=== PATIENT | female | born 1985 | race American Indian/Alaskan Native ===

== ENCOUNTER 2019-03-13 06:37 | Emergency (ER) | payer MEDICAID, OTHER ==
[2019-03-13 06:43] VITALS: BP 134/71
--- NOTE | 2019-03-13 07:49 | Emergency Department Report ---
ED Abdominal Pain HPI - General Chief Complaint: Abdominal Pain Stated Complaint: ABD PAIN Time Seen by Provider: 03/13/19 07:17 Source: patient Mode of arrival: Ambulatory Limitations: No Limitations - History of Present Illness Initial Comments: pt reports pelvic pain x 3 days, intermittent, sharp stabbing no n/v/d/c + dysuria, discharge MD Complaint: abdominal pain -: Gradual, days(s) (3) Location: suprapubic Radiation: none Migration to: no migration Severity: moderate Severity scale (0 -10): 5 Quality: stabbing Consistency: intermittent Improves With: nothing Worsens With: nothing Associated Symptoms: dysuria. denies: nausea, vomiting, diarrhea, fever - Related Data Previous Rx's Medication Instructions Recorded Last Taken Type Acetaminophen/Codeine [Tylenol #3] 1 tab PO Q6H PRN #16 tab 09/02/14 Unknown Rx Amoxicillin [Trimox CAP] 500 mg PO Q8H #30 capsule 09/02/14 Unknown Rx Ibuprofen [Motrin 800 MG tab] 800 mg PO Q8H #30 tablet 09/02/14 Unknown Rx Ibuprofen [Motrin] 600 mg PO Q8H PRN #15 tablet 03/13/19 Unknown Rx metroNIDAZOLE [Flagyl TAB] 2,000 mg PO ONCE #4 tab 03/13/19 Unknown Rx Allergies Allergy/AdvReac Type Severity Reaction Status Date / Time No Known Allergies Allergy Unverified 09/02/14 00:04 ED Review of Systems ROS: Stated complaint: ABD PAIN Other details as noted in HPI Comment: All other systems reviewed and negative Gastrointestinal: as per HPI Genitourinary: as per HPI ED Past Medical Hx - Past Medical History Previous Medical History?: No - Surgical History Past Surgical History?: No - Social History Smoking Status: Current Every Day Smoker Substance Use Type: Alcohol, Marijuana - Medications Home Medications: Home Medications Medication Instructions Recorded Confirmed Last Taken Type Acetaminophen/Codeine [Tylenol #3] 1 tab PO Q6H PRN #16 tab 09/02/14 Unknown Rx Amoxicillin [Trimox CAP] 500 mg PO Q8H #30 capsule 09/02/14 Unknown Rx Ibuprofen [Motrin 800 MG tab] 800 mg PO Q8H #30 tablet 09/02/14 Unknown Rx Ibuprofen [Motrin] 600 mg PO Q8H PRN #15 tablet 03/13/19 Unknown Rx metroNIDAZOLE [Flagyl TAB] 2,000 mg PO ONCE #4 tab 03/13/19 Unknown Rx ED Physical Exam - General Limitations: No Limitations General appearance: alert, in no apparent distress - Head Head exam: Present: atraumatic, normocephalic - Eye Eye exam: Present: normal appearance - ENT ENT exam: Present: mucous membranes moist - Neck Neck exam: Present: normal inspection - Respiratory Respiratory exam: Present: normal lung sounds bilaterally. Absent: respiratory distress - Cardiovascular Cardiovascular Exam: Present: regular rate, normal rhythm. Absent: systolic murmur, diastolic murmur, rubs, gallop - GI/Abdominal GI/Abdominal exam: Present: soft, tenderness (suprapubic, mild), normal bowel sounds. Absent: guarding, rebound, rigid - External exam: Present: normal external exam Speculum exam: Present: vaginal discharge (scant) Bi-manual exam: Present: normal bi-manual exam, other (libertad Teixeira RN ). Absent: cervical motion tendernes - Extremities Exam Extremities exam: Present: normal inspection - Back Exam Back exam: Present: normal inspection - Neurological Exam Neurological exam: Present: alert, oriented X3 - Psychiatric Psychiatric exam: Present: normal affect, normal mood - Skin Skin exam: Present: warm, dry, intact, normal color. Absent: rash ED Course Vital Signs 03/13/19 06:40 Temperature 98.9 F Pulse Rate 70 Respiratory 12 Rate Blood Pressure 134/71 O2 Sat by Pulse 100 Oximetry ED Medical Decision Making - Lab Data Lab Results 03/13/19 Range/Units 07:57 Urine Color Yellow (Yellow) Urine Turbidity Clear (Clear) Urine pH 5.0 (5.0-7.0) Ur Specific [place] 1.025 (1.003-1.030) Urine Protein <15 mg/dl (Negative) mg/dL Urine Glucose (UA) Neg (Negative) mg/dL Urine Ketones Neg (Negative) mg/dL Urine Blood Neg (Negative) Urine Nitrite Neg (Negative) Urine Bilirubin Neg (Negative) Urine Urobilinogen < 2.0 (<2.0) mg/dL Ur Leukocyte Esterase Neg (Negative) Urine WBC (Auto) 2.0 (0.0-6.0) /HPF Urine RBC (Auto) 2.0 (0.0-6.0) /HPF U Epithel Cells (Auto) 9.0 (0-13.0) /HPF Urine Bacteria (Auto) 1+ (Negative) /HPF Urine Mucus 1+ /HPF Urine HCG, Qual Negative (Negative) - Medical Decision Making Pt w/ lower abd discomfort intermittently mildly tender to suprapubic area only on exam no findings of PID, wants to be treated empirically for STI UA clear, UPT neg clue cells noted on wet prep, will treat offered US to evaluate for possible cyst, she declines today I do not suspect a GI etiology Recommend supportive care and PCP/VACATION PLANNER follow up - Differential Diagnosis uti, cervicitis, bv, cyst Critical care attestation.: If time is entered above; I have spent that time in minutes in the direct care of this critically ill patient, excluding procedure time. ED Disposition Clinical Impression: Pelvic pain, Bacterial vaginosis Disposition: TO HOME OR SELFCARE Is pt being admited?: No Condition: Good Instructions: Abdominal Pain (ED), Bacterial Vaginosis (ED) Prescriptions: metroNIDAZOLE [Flagyl TAB] 2,000 mg PO ONCE #4 tab Ibuprofen [Motrin] 600 mg PO Q8H PRN #15 tablet PRN Reason: Pain Referrals: PRIMARY CARE, [Primary Care Provider] - 3-5 Days Forms: STI Treatment and Prevention Time of Disposition: 09:19
[2019-03-13 09:02] LABS: Bacteria,Urine 1+ /HPF (Negative); Bilirubin,Urine NEG (Negative); Blood,Urine NEG (Negative); Color,Urine Yellow (Yellow); Mucus,Urine 1+ /HPF; Protein,Urine <15 mg/dL mg/dL (Negative); Urobilinogen,Urine < 2.0 mg/dL (<2.0)
[2019-03-13 09:03] LABS: HCG Qualitative,Urine Negative (Negative)
[2019-03-13] MEDS ORDERED: LIDOCAINE-MPF (1%) 10 MG/1 ML VIAL 5 ML INFILTRATI ONE (09:12)
[2019-03-13] MEDS ORDERED: AZITHROMYCIN 250 MG TAB PO ONE (09:12)
== END 2019-03-13 09:47 | disposition home or self-care (01) ==
LOC: ED 06:37
DX: N76.0 Acute vaginitis (principal); B96.89 Other specified bacterial agents as the cause of diseases classified elsewhere; R11.0 Nausea; F17.200 Nicotine dependence, unspecified, uncomplicated; F12.10 Cannabis abuse, uncomplicated
CPT/HCPCS: 81001; 81025; 87210; 87591; 96372; 99283; J0696

== ENCOUNTER 2020-09-22 00:16 | Emergency (ER) | payer OTHER ==
[2020-09-22 01:55] VITALS: BP 127/84
[2020-09-22] MEDS ORDERED: KETOROLAC 30 MG/1 ML INJ IM ONE (03:47)
--- NOTE | 2020-09-22 04:55 | Emergency Department Report ---
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 Patient states 4/10 pain is exacerbated by performing work duties moving boxes and lifting. There is no numbness tingling or paralysis. Pt denies loss or decrease in bowel or bladder function. pt drove self to ed , is a/o x 3 ambulatory with steady gait MD Complaint: back injury - Related Data Previous Rx's Medication Instructions Recorded Last Taken Type Acetaminophen/Codeine [Tylenol #3] 1 tab PO Q6H PRN #16 tab 09/02/14 Unknown Rx Amoxicillin [Trimox CAP] 500 mg PO Q8H #30 capsule 09/02/14 Unknown Rx Ibuprofen [Motrin 800 MG tab] 800 mg PO Q8H #30 tablet 09/02/14 Unknown Rx Ibuprofen [Motrin] 600 mg PO Q8H PRN #15 tablet 03/13/19 Unknown Rx metroNIDAZOLE [Flagyl TAB] 2,000 mg PO ONCE #4 tab 03/13/19 Unknown Rx Cyclobenzaprine [Flexeril] 10 mg PO TID PRN #15 tablet 09/22/20 Unknown Rx Menthol/Camphor [[place] 1 applicatio TP Q6H PRN #1 tube 09/22/20 Unknown Rx Ointment] Naproxen 500 mg PO BID PRN #30 tablet 09/22/20 Unknown Rx Allergies Allergy/AdvReac Type Severity Reaction Status Date / Time No Known Allergies Allergy Unverified 09/02/14 00:04 ED Review of Systems ROS: Stated complaint: UPPER BACK PAIN Other details as noted in HPI Constitutional: denies: chills, fever Eyes: denies: eye pain, eye discharge, vision change ENT: denies: ear pain, throat pain Respiratory: denies: cough, shortness of breath, wheezing Cardiovascular: denies: chest pain, palpitations Endocrine: no symptoms reported Gastrointestinal: denies: abdominal pain, nausea, diarrhea Genitourinary: denies: urgency, dysuria, discharge Musculoskeletal: back pain. denies: joint swelling, arthralgia Skin: denies: rash, lesions Neurological: denies: headache, weakness, paresthesias, vertigo Psychiatric: denies: anxiety, depression Hematological/Lymphatic: denies: easy bleeding, easy bruising ED Past Medical Hx - Past Medical History Previous Medical History?: No - Surgical History Past Surgical History?: No - Social History Smoking Status: Current Every Day Smoker Substance Use Type: Alcohol, Marijuana - Medications Home Medications: Home Medications Medication Instructions Recorded Confirmed Last Taken Type Acetaminophen/Codeine [Tylenol #3] 1 tab PO Q6H PRN #16 tab 09/02/14 Unknown Rx Amoxicillin [Trimox CAP] 500 mg PO Q8H #30 capsule 09/02/14 Unknown Rx Ibuprofen [Motrin 800 MG tab] 800 mg PO Q8H #30 tablet 09/02/14 Unknown Rx Ibuprofen [Motrin] 600 mg PO Q8H PRN #15 tablet 03/13/19 Unknown Rx metroNIDAZOLE [Flagyl TAB] 2,000 mg PO ONCE #4 tab 03/13/19 Unknown Rx Cyclobenzaprine [Flexeril] 10 mg PO TID PRN #15 tablet 09/22/20 Unknown Rx Menthol/Camphor [[place] 1 applicatio TP Q6H PRN #1 tube 09/22/20 Unknown Rx Ointment] Naproxen 500 mg PO BID PRN #30 tablet 09/22/20 Unknown Rx ED Physical Exam - General Limitations: No Limitations General appearance: alert, in no apparent distress - Head Head exam: Present: atraumatic, normocephalic - Eye Eye exam: Present: EOMI Pupils: Present: normal accommodation - ENT ENT exam: Present: mucous membranes moist - Neck Neck exam: Present: normal inspection, full ROM. Absent: tenderness - Respiratory Respiratory exam: Present: normal lung sounds bilaterally, chest wall tenderness. Absent: respiratory distress - Cardiovascular Cardiovascular Exam: Present: regular rate, normal rhythm, normal heart sounds. Absent: systolic murmur, diastolic murmur, rubs, gallop - GI/Abdominal GI/Abdominal exam: Present: soft, normal bowel sounds - Rectal Rectal exam: Present: deferred - Extremities Exam Extremities exam: Present: normal inspection, full ROM. Absent: tenderness - Back Exam Back exam: Present: full ROM, muscle spasm, paraspinal tenderness. Absent: vertebral tenderness - Expanded Back Exam Expanded Back exam: Absent: saddle anesthesia Back exam: Negative Straight Leg Raising: Left, Right - Neurological Exam Neurological exam: Present: alert, oriented X3, CN II-XII intact, normal gait, reflexes normal. Absent: motor sensory deficit - Expanded Neurological Exam Expanded Patient oriented to: Present: person, place, time Speech: Present: fluid speech Motor strength exam: RUE: 5, LUE: 5, RLE: 5, LLE: 5 DTR: knee (R): 2+, knee (L): 2+ (Patient) Best Eye Response (Martin): (4) open spontaneously Best Motor Response (Martin): (6) obeys commands Best Verbal Response (Martin): (5) oriented [place] Total: 15 - Psychiatric Psychiatric exam: Present: normal affect, normal mood - Skin Skin exam: Present: warm, dry, intact, normal color. Absent: rash ED Course Vital Signs 09/22/20 01:31 Temperature 98.3 F Pulse Rate 90 Respiratory 20 Rate Blood Pressure 127/84 O2 Sat by Pulse 96 Oximetry ED Medical Decision Making - Medical Decision Making This is an upper back strain. Plan NSAIDs, moist heat therapy, upper back exercises, follow-up with primary doctor in 2 to 3 patient verbalized agreement and understanding with discharge plan. Patient DC'd home in stable condition at this time. Critical care attestation.: If time is entered above; I have spent that time in minutes in the direct care of this critically ill patient, excluding procedure time. ED Disposition Clinical Impression: Upper back strain Qualifiers: Encounter type: initial encounter Qualified Code(s): S29.012A - Strain of muscle and tendon of back wall of thorax, initial encounter Disposition: DC-01 TO HOME OR SELFCARE Is pt being admited?: No Does the pt Need Aspirin: No Condition: Stable Instructions: Muscle Strain, [id number], Thoracic Strain Rehab-SportsMed Prescriptions: Cyclobenzaprine [Flexeril] 10 mg PO TID PRN #15 tablet PRN Reason: Muscle Spasm Naproxen 500 mg PO BID PRN #30 tablet PRN Reason: pain Menthol/Camphor [[place] Ointment] 1 applicatio TP Q6H PRN #1 tube PRN Reason: pain Referrals: LOUISE MIRANDA MD [Primary Care Provider] - 3-5 Days Forms: Work/School Release Form(ED) Time of Disposition: 04:59
== END 2020-09-22 05:10 | disposition home or self-care (01) ==
LOC: ED 00:16
DX: S29.012A Strain of muscle and tendon of back wall of thorax, initial encounter (principal); F17.200 Nicotine dependence, unspecified, uncomplicated; F12.90 Cannabis use, unspecified, uncomplicated; Z79.899 Other long term (current) drug therapy; X58.XXXA Exposure to other specified factors, initial encounter; Y93.89 Activity, other specified; Y92.89 Other specified places as the place of occurrence of the external cause; Y99.8 Other external cause status
CPT/HCPCS: 96372; 99282; J1885

== ENCOUNTER 2020-10-17 21:12 | Emergency (ER) | payer SELFPAY ==
[2020-10-17 21:52] VITALS: BP 154/82
[2020-10-18] MEDS ORDERED: HYDROcodone/ACETAMINOPHEN 5-325 MG TAB PO ONE (01:25)
--- NOTE | 2020-10-18 02:29 | XRay Report ---
LEFT WRIST, 4 VIEWS INDICATION / CLINICAL INFORMATION: pain swelling. Complaining of wrist pain after shipping box fell on wrist COMPARISON: None available. FINDINGS: The left wrist is intact. There is no visible fracture or malalignment. No appreciable soft tissue ab normality. IMPRESSION: Negative exam. Signer Name: Kymberly Jimenez MD Signed: 10/18/2020 2:24 AM Workstation Name: [id number]
--- NOTE | 2020-10-18 02:55 | Emergency Department Report ---
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 States pain started after lifting heavy boxes and hyperextended wrist. There is 5/10 aching and soreness. With some swelling and tingling. Range of motion is restricted by pain there is no abrasion laceration or bleeding. ED Review of Systems ROS: Stated complaint: LT WRIST INJURY Other details as noted in HPI Constitutional: denies: chills, fever Eyes: denies: eye pain, eye discharge, vision change ENT: denies: ear pain, throat pain Respiratory: denies: cough, shortness of breath, wheezing Cardiovascular: denies: chest pain, palpitations Endocrine: no symptoms reported Gastrointestinal: denies: abdominal pain, nausea, diarrhea Genitourinary: denies: urgency, dysuria, discharge Musculoskeletal: myalgia (pain swelling left wrist ). denies: back pain, joint swelling, arthralgia Skin: denies: rash, lesions Neurological: denies: headache, weakness, numbness, paresthesias Psychiatric: denies: anxiety, depression Hematological/Lymphatic: denies: easy bleeding, easy bruising ED Past Medical Hx - Past Medical History Previous Medical History?: No - Surgical History Past Surgical History?: No - Social History Smoking Status: Current Every Day Smoker Substance Use Type: Alcohol, Marijuana - Medications Home Medications: Home Medications Medication Instructions Recorded Confirmed Last Taken Type Acetaminophen/Codeine [Tylenol #3] 1 tab PO Q6H PRN #16 tab 09/02/14 Unknown Rx Amoxicillin [Trimox CAP] 500 mg PO Q8H #30 capsule 09/02/14 Unknown Rx Ibuprofen [Motrin 800 MG tab] 800 mg PO Q8H #30 tablet 09/02/14 Unknown Rx Ibuprofen [Motrin] 600 mg PO Q8H PRN #15 tablet 03/13/19 Unknown Rx metroNIDAZOLE [Flagyl TAB] 2,000 mg PO ONCE #4 tab 03/13/19 Unknown Rx Cyclobenzaprine [Flexeril] 10 mg PO TID PRN #15 tablet 09/22/20 Unknown Rx Menthol/Camphor [[place] 1 applicatio TP Q6H PRN #1 tube 09/22/20 Unknown Rx Ointment] Naproxen 500 mg PO BID PRN #30 tablet 09/22/20 Unknown Rx Menthol/Camphor [[place] 1 applicatio TP Q6H PRN #1 tube 10/18/20 Unknown Rx Ointment] Naproxen [Naprosyn TAB] 500 mg PO BID PRN #30 tablet 10/18/20 Unknown Rx Upper Extremity Exam - Exam General: Vital signs noted. No distress. Alert and acting appropriately. Patient appears well with no acute distress neuro exam is normal, distal pulses intact, fitting room associate equal, ACCOUNTS PAYABLE ADMINISTRATOR less than 3 seconds bilateral, there is no crepitus, no step-off, no xiphoid process tenderness no pain to simulated axial thumb loading, flexion extension intact to direct apposition, pain with pronation and supination, mild pain in the carpal region. Remaining physical exam is normal lungs are clear throughout, heart sounds S1-S2 no gallop rub or murmur, Head and Torso: No HEENT Abnormality, No Neck Tenderness, No Chest/Lungs Abnormality, No Abdominal Tenderness, No Back Tenderness Shoulder Exam: Yes Normal Range of Motion in Shoulder, No Shoulder Tenderness, No Clavicle Tenderness, No Shoulder Deformity, No AC Joint Tenderness Arm Exam: No Arm/Humerus Tenderness, No Arm Deformity Elbow: No Elbow Tenderness, No Normal Range of Motion in Elbow, No Elbow Deformity Forearm: Yes Forearm Tenderness, Yes Pain with Pronation, Yes Pain with Supination, No Forearm Deformity Wrist: Yes Wrist Tenderness, Yes Normal ROM in Wrist, No Wrist Deformity, No Snuffbox Tenderness, No Pain with Axial Thumb Compression Hand: Yes Hand Tenderness, Yes Normal ROM in Digit(s), No Hand Deformity, No Digit Tenderness, No Digit(s) Deformity, No Tendon Dysfunction CMS Exam: Yes Normal Distal Pulses, Yes Normal Capillary Refill, Yes Normal Distal Sensation, No Broken Skin ED Course Vital Signs 10/17/20 21:49 Temperature 98.1 F Pulse Rate 85 Respiratory 18 Rate Blood Pressure 154/82 O2 Sat by Pulse 97 Oximetry ED Medical Decision Making - Radiology Data Radiology results: image reviewed Left wrist x-ray mild soft tissue swelling no fracture no deformity - Medical Decision Making xray neg for fracture, Distal pulses intact +2 fitting room associate are equal ACCOUNTS PAYABLE ADMINISTRATOR less than 3 seconds bilateral this is likely wrist sprain plan Velcro wrist splint, NSAIDs, wrist exercises, follow-up with primary care doctor in 2 to 3 days. Patient verbalized agreement and understanding of discharge plan. Patient DC'd home in stable condition at this time. Critical care attestation.: If time is entered above; I have spent that time in minutes in the direct care of this critically ill patient, excluding procedure time. ED Disposition Clinical Impression: Left wrist sprain Qualifiers: Encounter type: initial encounter Qualified Code(s): S63.502A - Unspecified sprain of left wrist, initial encounter Disposition: DC-01 TO HOME OR SELFCARE Is pt being admited?: No Does the pt Need Aspirin: No Condition: Stable Instructions: Wrist Sprain Rehab-SportsMed Additional Instructions: Take medications as perscribed, wrist exercises as directed, follow up with your doctor in 2-3 days, return to emergency if symptoms worsen. Prescriptions: Naproxen [Naprosyn TAB] 500 mg PO BID PRN #30 tablet PRN Reason: pain Menthol/Camphor [[place] Ointment] 1 applicatio TP Q6H PRN #1 tube PRN Reason: pain Referrals: RIMA PALMER MD [Staff Physician] - 3-5 Days Forms: Work/School Release Form(ED) Time of Disposition: 03:07
== END 2020-10-18 03:15 | disposition home or self-care (01) ==
LOC: ED 21:12
DX: S63.502A Unspecified sprain of left wrist, initial encounter (principal); F17.200 Nicotine dependence, unspecified, uncomplicated; F12.10 Cannabis abuse, uncomplicated; Z79.1 Long term (current) use of non-steroidal anti-inflammatories (NSAID); Z79.2 Long term (current) use of antibiotics; Z79.899 Other long term (current) drug therapy; X50.0XXA Overexertion from strenuous movement or load, initial encounter; X50.9XXA Other and unspecified overexertion or strenuous movements or postures, initial encounter; Y93.89 Activity, other specified; Y92.89 Other specified places as the place of occurrence of the external cause; Y99.8 Other external cause status